=== PATIENT | female | born 1985 | race Hispanic/Latino ===

== ENCOUNTER 2024-12-30 07:57 | Outpatient (CLI) | payer OTHER | END 2024-12-30 07:58 | disposition home or self-care (01) | LOC: CSHULT 07:57 | PROVIDERS: ATTEND Nurse Practitioner | DX: N92.0 Excessive and frequent menstruation with regular cycle (principal); R16.0 Hepatomegaly, not elsewhere classified; D25.9 Leiomyoma of uterus, unspecified; N88.8 Other specified noninflammatory disorders of cervix uteri | CPT/HCPCS: 76700; 76856 ==